=== PATIENT | male | born 1965 | race Two or more races ===

== ENCOUNTER 2023-02-25 19:16 | Inpatient (IN) | payer MEDICAID, OTHER ==
[~2023-02-25] VITALS: Ht 165.1 cm; Wt 75.9 kg
[2023-02-25 20:03] LABS: Urine WBC None Seen /hpf (0 - 3)
[2023-02-25 20:27] LABS: Basophils # (auto) 0.1 10 ^3/uL (0-0.2); Basophils % (auto) 1.1 % (0.0-2.0); Eosinophils # (auto) 0.2 10 ^3/uL (0-0.8); Eosinophils % (auto) 2.7 % (0.0-7.0); Hematocrit 47.4 % (41.0-53.0); Hemoglobin 16.4 g/dL (13.5-17.5); Lymphocytes # (auto) 3.9 10 ^3/uL (0.4-5.4); Lymphocytes % (auto) 45.6 % (10.0-50.0); Mean Corpuscular Hemoglobin 32.2 pg (28.0-32.0); Mean Corpuscular Hgb Conc. 34.5 g/dL (32.0-36.0); Mean Corpuscular Volume 93.2 fL (80.0-100.0); Monocytes # (auto) 0.8 10 ^3/uL (0-1.3); Monocytes % (auto) 9.6 % (0.0-12.0); Neutrophils # (auto) 3.5 10 ^3/uL (1.6-8.6); Nucleated Red Blood Cells % 0.3 %; Red Blood Cells 5.08 10^6/uL (4.5-5.90); Red Cell Distribution Width 12.7 % (11.8-14.3); White Blood Cell 8.6 10^3/uL (4.4-10.8)
[2023-02-25 20:30] LABS: Urine Bacteria NONE SEEN /hpf (None Seen); Urine Blood TRACE /uL (Negative)
[2023-02-25] MEDS ORDERED: SODIUM CHLORIDE 0.9% 1,000 ML IV ONE (20:30)
[2023-02-25 20:51] LABS: Albumin 3.8 g/dL (3.4-5.0); BUN/Creatinine Ratio 13.2 (10.0-20.0); Calcium 9.3 mg/dL (8.5-10.1); Potassium 4.2 mmol/L (3.5-5.1)
[2023-02-25 20:54] LABS: Bilirubin, Total 0.6 mg/dL (0.2-1.0); Total Protein 8.4 g/dL (6.4-8.2)
[2023-02-26] MEDS ORDERED: ONDANSETRON HCL 4 MG/2 ML VIAL IV PRN (03:00)
[2023-02-26] MEDS ORDERED: ACETAMINOPHEN 325 MG TAB PO PRN (03:00)
[2023-02-26] MEDS: metFORMIN HYDROCHLORIDE 500 MG TAB PO SCH ×2 (09:23→17:48)
[2023-02-26] MEDS: LISINOPRIL 10 MG TAB PO SCH (10:26)
[2023-02-26] MEDS: InsuLIN REG 1unit/0.01ml Soln (100units/ml) SC SCH ×3 (12:00→20:00)
[2023-02-26] MEDS ORDERED: DEXTROSE (50%) 50ML SYRG IV PRN (12:00)
[2023-02-26] MEDS: ACCU-CHEK COMFORT CURVE STRIP VI SCH ×3 (15:03→20:00)
[2023-02-26 22:00] VITALS: BP 149/83
[2023-02-27] MEDS: ACCU-CHEK COMFORT CURVE STRIP VI SCH ×5 (00:23→16:00)
[2023-02-27] MEDS: InsuLIN REG 1unit/0.01ml Soln (100units/ml) SC SCH ×5 (00:26→16:00)
[2023-02-27 05:35] VITALS: BP 120/58
[2023-02-27 06:33] LABS: BUN/Creatinine Ratio 13.5 (10.0-20.0); Calcium 9.5 mg/dL (8.5-10.1); Potassium 4.4 mmol/L (3.5-5.1)
[2023-02-27] MEDS: metFORMIN HYDROCHLORIDE 500 MG TAB PO SCH (08:00)
[2023-02-27 09:00] VITALS: BP 144/87
[2023-02-27] MEDS: LISINOPRIL 10 MG TAB PO SCH (10:00)
[2023-02-27] MEDS ORDERED: METF-372 PO (10:33)
[2023-02-27 11:48] VITALS: BP 114/63
== END 2023-02-27 17:00 | disposition home or self-care (01) | DRG 420 ==
LOC: ER 19:16 → OVERFLOW 02-26 02:51 → WEST WING 02-26 18:33
PROVIDERS: ADMIT Nurse Practitioner; ATTEND Family Medicine
DX: E11.65 Type 2 diabetes mellitus with hyperglycemia (principal); N30.90 Cystitis, unspecified without hematuria; F10.10 Alcohol abuse, uncomplicated; I10 Essential (primary) hypertension; Y90.9 Presence of alcohol in blood, level not specified; Z79.4 Long term (current) use of insulin
CPT/HCPCS: 36415; 71045; 74176; 80048; 80053; 81001; 82010; 82962; 83036; 85025; 96360; G0378; J1815